=== PATIENT | female | born 1990 | race Caucasian/White ===

== ENCOUNTER 2020-07-13 19:43 | Emergency (ER) | payer BC, SELFPAY ==
[2020-07-13 19:44] VITALS: BP 160/99; PULSE 93; RESP 14; TEMP 36.6; O2SAT 99; BMI 30.4
[2020-07-13 20:08] VITALS: BP 139/92; PULSE 99; O2SAT 100
--- NOTE | 2020-07-13 20:09 | CT_ITS ---
PROCEDURE INFORMATION: Exam: CT Abdomen And Pelvis With Contrast Exam date and time: 07/13/2020 8:09 PM Age: 29 years old Clinical indication: Abdominal pain; Localized; Prior surgery; Surgery date: 6+ months; Surgery type: Gatric sleeve. Gallbladder; Patient HX: Lower abd pain for 1 day. No n/v/d TECHNIQUE: Imaging protocol: Computed tomography of the abdomen and pelvis with contrast. Radiation optimization: All CT scans at this facility use at least one of these dose optimization techniques: automated exposure control; mA and/or kV adjustment per patient size (includes targeted exams where dose is matched to clinical indication); or iterative reconstruction. Contrast material: ISOVUE; Contrast volume: 75 ml; Contrast route: IV; COMPARISON: No relevant prior studies available. FINDINGS: Liver: Normal. No mass. Gallbladder and bile ducts: There are surgical clips within the gallbladder fossa. Pancreas: Normal. No ductal dilation. Spleen: Normal. No splenomegaly. Adrenal glands: Normal. No mass. Kidneys and ureters: Nonobstructive superior pole left renal nephrolithiasis measuring 2 mm in diameter. Right kidney is normal. 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 Appendix: No evidence of appendicitis. Intraperitoneal space: Unremarkable. No free air. No significant fluid collection. Vasculature: Unremarkable. No abdominal aortic aneurysm. Lymph nodes: Unremarkable. No enlarged lymph nodes. Urinary bladder: Unremarkable as visualized. Reproductive: IUD within the uterus. Dominant follicle of the left ovary measures 12 mm in diameter. Bones/joints: Unremarkable. No acute fracture. Soft tissues: Normal. IMPRESSION: No acute findings.
[2020-07-13 20:15] LABS: Microscopic, Urine URINE MICROSCOPIC (MICROSCOPIC)
[2020-07-13 20:19] LABS: Basophils % 0.7 % (0.1-2.0); Eosinophils # 0.1 K/mm3 (0.0-0.4); Eosinophils % 2.2 % (0.1-12.0); Hematocrit 40.7 % (37.0-47.0); Lymphocytes # 2.3 K/mm3 (0.7-4.5); Lymphocytes % 38.8 % (10-50); Mean Corpuscular HGB Conc 34.3 g/dL (31.8-35.4); Mean Corpuscular Volume 84.6 fl (81-99); Mean Platelet Volume 7.3 fl (7.4-10.4); Monocytes # 0.4 K/mm3 (0.1-1.0); Monocytes % 6.3 % (1.7-9.3); Neutrophils # 3.1 K/mm3 (1.8-7.8); Neutrophils % 52.1 % (37.0-80.0); Platelet Count 293 K/mm3 (142-424); Red Blood Count 4.81 M/mm3 (4.20-5.40); Red Cell Distribution Width 13.5 % (11.5-17.5); White Blood Count 5.9 K/mm3 (4.8-10.8)
[2020-07-13 20:20] LABS: Appearance,Urine SL CLOUDY (Clear); Bilirubin,Urine Negative (Negative); Blood, Urine Negative (Negative); Color,Urine YELLOW (Yellow); Glucose,Urine (UA) Negative (Negative); Ketones,Urine Negative (Negative); Leukocyte Esterase,Urine TRACE (Negative); Nitrate,Urine Negative (Negative); Protein,Urine Negative (Negative); Urobilinogen,Urine 0.2 EU/dl (0.2)
[2020-07-13 20:22] LABS: Urine Pregnancy, HCG Qual. Negative (Negative)
[2020-07-13 20:25] LABS: Alanine Aminotransferase 15 U/L (12-78); Albumin Level 4.9 g/dl (3.5-5.0); Albumin/Globulin Ratio 1.6 (1.1-1.8); Alkaline Phosphatase 77 U/L (38-126); Amylase 68 U/L (30-110); Anion Gap 12.9 mEq/L (5-15); Aspartate Amino Transferase 33 U/L (14-36); Bilirubin,Total 0.3 mg/dl (0.2-1.3); Blood Urea Nitrogen 13 mg/dl (7-17); Calcium 9.2 mg/dl (8.4-10.2); Carbon Dioxide 26 mmol/L (22.0-30.0); Chloride 106 mmol/L (98-107); Creatinine Clearance Estimated 163 mL/min (50-200); Estimated Glomerular Filt Rate 100 ml/min (>60); GFR (African American) 121 ML/MIN (>60); Glucose 74 mg/dl (74-100); Lipase 196 U/L (23-300); Potassium 3.9 mmoL/L (3.5-5.1); Sodium 141 mmol/L (136-145); Total Protein,Serum 7.9 g/dl (6.3-8.2)
[2020-07-13 20:30] LABS: C-Reactive Protein 0.6 mg/L (0-4)
[2020-07-13 20:37] LABS: Bacteria,Urine 3+ /lpf; Squamous Epithelial Cell,Urine TNTC #/hpf (0-5)
[2020-07-13 20:43] LABS: Erythrocyte Sedimentation Rate 11 mm/hr (0-20)
[2020-07-13 20:45] LABS: Procalcitonin < 0.030 ng/mL (0.0-2.0)
--- NOTE | 2020-07-13 20:53 | [facility].EDNVD ---
ED Disposition Clinical Impression: Abdominal pain Qualifiers: Abdominal location: right lower quadrant Qualified Code(s): R10.31 - Right lower quadrant pain Disposition: Home, Self-Care Condition on Discharge: Good Instructions: DI for Acute Abdominal Pain Additional Instructions: fluids and see pcp for follow up and recheck in ed if needed Prescriptions: Ketorolac Tromethamine [Toradol 10mg tablet] 10 mg PO Q6HP PRN #7 tab MDD 40mg/day PRN Reason: Moderate To Severe Pain Transmission Status: Pending to [facility] - [facility] Referrals: Irene Warren APRN [Primary Care Provider] - - Critical Care Critical Care Time: No Attestation: On 07/13/20, the high probability of a clinically significant, sudden or life threatening deterioration of the following system(s) required my full and direct attention, intervention and personal management. The time I documented below is in addition to time spent performing reported procedures but includes the following listed in this critical care notation. Medical Decision Making - Medical Records Medical records reviewed: Yes: I reviewed the patient's medical records. - [place] Inquiry Pt receiving controlled substance: No Vital Signs: 07/13/20 19:44 07/13/20 20:08 07/13/20 21:21 Temperature 97.8 F Temperature Source Oral Pulse Rate 99 H 72 Pulse Rate [Right] 93 H Respiratory Rate 14 Blood Pressure 139/92 H 101/53 L Blood Pressure [Right Arm] 160/99 H Blood Pressure Mean [Right Arm] 119 Blood Pressure Source Manual Cuff/ Palpation Blood Pressure Position Sitting 02 Sat by Pulse Oximetry 99 100 98 Oxygen Delivery Method Room Air 07/13/20 21:30 07/13/20 22:01 Temperature Temperature Source Pulse Rate 49 L 83 Pulse Rate [Right] Respiratory Rate Blood Pressure 106/67 L 108/84 L Blood Pressure [Right Arm] Blood Pressure Mean [Right Arm] Blood Pressure Source Blood Pressure Position 02 Sat by Pulse Oximetry 100 99 Oxygen Delivery Method - Lab Data Lab results reviewed: Yes: I reviewed the patient's lab results. Lab Results 07/13/20 19:53: Urine Color Yellow, Urine Appearance Sl cloudy, Urine pH 7.0, Ur Specific [place] 1.020, Urine Protein Negative, Urine Glucose (UA) Negative, Urine Ketones Negative, Urine Blood Negative, Urine Nitrate Negative, Urine Bilirubin Negative, Urine Urobilinogen 0.2, Ur Leukocyte Esterase Trace, Urine RBC None, Urine WBC 3-5, Ur Squamous Epith Cells Tntc, Urine Bacteria 3+ 07/13/20 19:53: Urine HCG, Qual Negative 07/13/20 19:58: WBC 5.9, RBC 4.81, Hgb 14.0, Hct 40.7, MCV 84.6, MCH 29.0, MCHC 34.3, RDW 13.5, Plt Count 293, MPV 7.3 L, Neut % (Auto) 52.1, Lymph % (Auto) 38.8, Casey % (Auto) 6.3, Eos % (Auto) 2.2, Baso % (Auto) 0.7, Neut # (Auto) 3.1, Lymph # (Auto) 2.3, Casey # (Auto) 0.4, Eos # (Auto) 0.1, Baso # (Auto) 0.0, ESR 11 07/13/20 19:58: Sodium 141, Potassium 3.9, Chloride 106, Carbon Dioxide 26, Anion Gap 12.9, BUN 13, Creatinine 0.70, Estimated Creat Clear 163, Estimated GFR 100, Est GFR ( Amer) 121, Glucose 74, Calcium 9.2, Total Bilirubin 0.3, AST 33, ALT 15, Alkaline Phosphatase 77, C-Reactive Protein 0.6, Total Protein 7.9, Albumin 4.9, Globulin 3.0, Albumin/Globulin Ratio 1.6, Amylase 68, Lipase 196, Procalcitonin < 0.030 Result diagrams: 07/13/20 19:58 07/13/20 19:58 Orders (Tests/Meds): ED MEDICATIONS Generic Name Dose Route Start Last Admin Trade Name Freq PRN Reason Stop Dose Admin Acetaminophen/Codeine Phosphate 1 rohit 07/13/20 23:34 Acetaminophen 300mg W/Codeine 30mg Take Home Pack (6) PO 07/13/20 23:35 ONCE ONE Sodium Chloride 1,000 mls @ 999 mls/hr 07/13/20 20:15 07/13/20 20:32 Sod Chlor 0.9% 1000ml Bag IV 07/13/20 21:15 999 mls/hr .Q1H1M MARIA FERNANDA Administration Sodium Chloride 1,000 mls @ 999 mls/hr 07/13/20 22:15 07/13/20 22:07 Sod Chlor 0.9% 1000ml Bag IV 07/13/20 23:15 999 mls/hr .Q1H1M MARIA FERNANDA Administration Sodiu
--- NOTE | 2020-07-13 21:01 | PC.NURSE ---
pt gone to CT
[2020-07-13 21:21] VITALS: BP 101/53; PULSE 72; O2SAT 98
[2020-07-13 21:30] VITALS: BP 106/67; PULSE 49; O2SAT 100
--- NOTE | 2020-07-13 21:56 | US_ITS ---
PROCEDURE INFORMATION: Exam: US Duplex Artery or Vein of the Abdominal and/or Reproductive Organs, Limited Ovaries Exam date and time: 07/13/2020 9:56 PM Age: 29 years old Clinical indication: Patient HX: Pelvic pain x 8 hours---. Patient had negative CT today; Additional info: RT sided pelvic pain TECHNIQUE: Imaging protocol: Real-time duplex ultrasound scan of the arterial or venous flow with arrieta scale, color Doppler flow and spectral waveform analysis with image documentation. Limited duplex exam focused on the ovaries. Duplex images required to evaluate for torsion and other vascular conditions. COMPARISON: CT ABDOMEN PELVIS W CON 07/13/2020 8:59 PM FINDINGS: Right adnexa: Normal vascular echoes of the right ovary are documented on color Doppler ultrasound. Left adnexa: Normal vascular echoes of the left ovary are documented on color Doppler ultrasound. IMPRESSION: Normal duplex of the ovaries. No evidence of ovarian torsion. PROCEDURE INFORMATION: Exam: US Pelvis, Transvaginal Exam date and time: 07/13/2020 9:56 PM Age: 29 years old Clinical indication: Patient HX: Pelvic pain x 8 hours---. Patient had negative CT today; Additional info: RT sided pelvic pain TECHNIQUE: Imaging protocol: Real-time transvaginal pelvic ultrasound with image documentation. Transvaginal imaging was used for better evaluation of the endometrium, adnexa, and/or cervix. COMPARISON: CT ABDOMEN PELVIS W CON 07/13/2020 8:59 PM FINDINGS: Uterus/cervix: Echogenic structure noted within the uterus compatible with IUD in good position. Uterus measures 8.3 x 4.6 x 5.3 cm and has normal echotexture of the myometrium. Right adnexa: Right ovary measures 3.4 x 1.9 x 3.6 cm having normal size and follicles. Left adnexa: Left ovary measures 4.0 x 1.8 x 2.6 cm having normal size and follicles. Intraperitoneal space: No free fluid. IMPRESSION: No acute findings.
[2020-07-13 22:01] VITALS: BP 108/84; PULSE 83; O2SAT 99
[2020-07-13 23:58] VITALS: BP 143/85; PULSE 85; RESP 16; TEMP 37.1
== END 2020-07-14 00:14 | disposition home or self-care (01) ==
PROVIDERS: Emergency Provider Emergency Medicine; PCP Nurse Practitioner Family
DX: R10.31 Right lower quadrant pain (principal)
CPT/HCPCS: 74177; 76830; 80053; 81001; 81025; 82150; 83690; 84145; 85025; 85651; 86140; 87086; 99283; J2405; Q9967